=== PATIENT | female | born 1980 | race American Indian/Alaskan Native ===

== ENCOUNTER 2019-02-20 11:44 | Emergency (ER) | payer OTHER ==
[2019-02-20 12:47] VITALS: BP 92/59
--- NOTE | 2019-02-20 12:52 | Event Note ---
ED Screening Note Date of service: 02/20/19 Time: 12:48 ED Screening Note: 38 y/o female comes in for pelvic pain and back pain. N/V and weakness. m 1 a1. No care. This initial assessment/diagnostic orders/clinical plan/treatment(s) is/are subject to change based on patients health status, clinical progression and re- assessment by fellow clinical providers in the ED. Further treatment and workup at subsequent clinical providers discretion. Patient/guardian urged not to elope from the ED as their condition may be serious if not clinically assessed and managed. Initial orders include: quant ua US [id number]
[2019-02-20 13:47] LABS: Bilirubin,Urine NEG (Negative); Blood,Urine NEG (Negative); Color,Urine Yellow (Yellow); Mucus,Urine FEW /HPF; Protein,Urine <15 mg/dL mg/dL (Negative); Urobilinogen,Urine < 2.0 mg/dL (<2.0)
--- NOTE | 2019-02-20 14:42 | Emergency Department Report ---
ED HPI - General Chief complaint: Abdominal Pain Stated complaint: LOWER STOMACH/BACK PAIN/WEAKNESS Time Seen by Provider: 02/20/19 12:48 Source: patient Mode of arrival: Ambulatory Limitations: No Limitations - History of Present Illness Initial comments: Mrs. Dodson is a 38 yo female who presents with lower pelvic pain for the past week. She has right lower pelvic pain and left lower back pain. Pain is intermittent and worse with movement. Denies vaginal bleeding. No nausea. No vomiting. She is approximately 20 weeks with LMP in September. She has generalized fatigue especially after a day of work. Has not obtained care. She has her first OB appointment on Saturday. Mild lower suprapubic pain. Does not feel like contractions. No loss of fluid. She does feel the baby move. This is Mrs. Dodson seventh . She has 4 healthy children, one miscarriage and one . Complaint: other (pelvic pressure) -: Gradual, week(s) (1) Location: other (suprapubic) Radiation: suprapubic Severity: mild Quality: other (pressure) Consistency: intermittent Worsens with: movement Associated symptoms: other (left lower back pain) :: Yes Number of weeks : 20 OB History - Current : other (no care) OB History - Previous Pregnancies: miscarriage Pre- care: none - Related Data Previous Rx's Medication Instructions Recorded Last Taken Type Azithromycin [Zithromax Z-JONN] 250 mg PO DAILY #6 tablet 05/22/18 Unknown Rx Benzonatate [Tessalon Perle] 100 mg PO Q8H PRN #20 capsule 05/22/18 Unknown Rx Prednisone [predniSONE 10 mg 10 mg PO .TAPER #1 tab.ds.pk 05/22/18 Unknown Rx (6-Day Pack, 21 Tabs)] Allergies Allergy/AdvReac Type Severity Reaction Status Date / Time No Known Allergies Allergy Verified 02/20/19 11:50 ED Review of Systems ROS: Stated complaint: LOWER STOMACH/BACK PAIN/WEAKNESS Other details as noted in HPI Comment: All other systems reviewed and negative Constitutional: denies: fever, malaise Respiratory: denies: cough Cardiovascular: denies: chest pain ED Past Medical Hx - Past Medical History Previous Medical History?: No - Surgical History Past Surgical History?: No - Social History Smoking Status: Current Some Day Smoker Substance Use Type: Alcohol - Medications Home Medications: Home Medications Medication Instructions Recorded Confirmed Last Taken Type Azithromycin [Zithromax Z-JONN] 250 mg PO DAILY #6 tablet 05/22/18 Unknown Rx Benzonatate [Tessalon Perle] 100 mg PO Q8H PRN #20 capsule 05/22/18 Unknown Rx Prednisone [predniSONE 10 mg 10 mg PO .TAPER #1 tab.ds.pk 05/22/18 Unknown Rx (6-Day Pack, 21 Tabs)] ED Physical Exam - General Limitations: No Limitations General appearance: alert, in no apparent distress, other (appears well, comfortable. Eating food.) - Head Head exam: Present: atraumatic, normocephalic - Eye Eye exam: Present: normal appearance - ENT ENT exam: Present: mucous membranes moist - Neck Neck exam: Present: normal inspection, full ROM - Respiratory Respiratory exam: Present: normal lung sounds bilaterally. Absent: respiratory distress, wheezes, rales, rhonchi - Cardiovascular Cardiovascular Exam: Present: regular rate, normal rhythm, normal heart sounds. Absent: systolic murmur, diastolic murmur, rubs, gallop - GI/Abdominal GI/Abdominal exam: Present: soft, normal bowel sounds. Absent: distended, tenderness, guarding, rebound - Extremities Exam Extremities exam: Present: normal inspection - Back Exam Back exam: Present: normal inspection - Neurological Exam Neurological exam: Present: alert, oriented X3 - Psychiatric Psychiatric exam: Present: normal affect, normal mood - Skin Skin exam: Present: warm, dry, intact, normal color. Absent: rash ED Course Vital Signs 02/20/19 12:43 Temperature 98.4 F Pulse Rate 89 Respiratory 16 Rate Blood Pressure 92/59 [Right] O2 Sat by Pulse 99 Oximetry ED Medical Decision Making - Lab Data Laboratory Results - last 24 hr 02/20/19 02/20/19 02/20/19 13:01 13:01 13:13 HCG, Quant [id number] H Urine Color Yellow Urine Turbidity Slightly-cloudy Urine pH 7.0 Ur Specific Canmer 1.017 Urine Protein <15 mg/dl Urine Glucose (UA) Neg Urine Ketones Tr Urine Blood Neg Urine Nitrite Neg Urine Bilirubin Neg Urine Urobilinogen < 2.0 Ur Leukocyte Esterase Neg Urine WBC (Auto) 1.0 Urine RBC (Auto) 3.0 U Epithel Cells (Auto) 5.0 Urine Mucus Few Blood Type O POSITIVE Ord Rhogam Gestat Weeks Rh pos - Radiology Data Radiology results: report reviewed OB ultrasound: Viable single intrauterine sonographic age 19 weeks 5 days. - Medical Decision Making Mrs. Dodson presents with suprapubic pressure worse with movement. Clinical impression: Round ligament pain due to advancing . Estimated gestational age according to ultrasound 19 weeks 5 days. No indication of UTI, acute intra-abdominal inflammatory process such as appendicitis. Normal physical exam without indication of peritonitis. I do not suspect ovarian cyst or torsion. Mrs Dodson was given return precautions. She'll follow-up with her scheduled OB appointment in 3 days. Positive hcg serum quantitative, blood type O+ Critical care attestation.: If time is entered above; I have spent that time in minutes in the direct care of this critically ill patient, excluding procedure time. ED Disposition Clinical Impression: Abdominal pain affecting , Round ligament pain Disposition: DC-01 TO HOME OR SELFCARE Is pt being admited?: No Does the pt Need Aspirin: No Condition: Stable Instructions: Abdominal Pain in (ED) Additional Instructions: Today's ultrasound: baby is 19 weeks and 5 days old, SILVIANO 2019 Referrals: GRANT MIKE MD [Staff Physician] - 3-5 Days
--- NOTE | 2019-02-20 14:49 | Ultrasound Report ---
OB ULTRASOUND >= 14 WEEKS FETUS INDICATION: abd pain 19 weeks preg COMPARISON: None at this facility TECHNIQUE: Transabdominal ultrasound with color Doppler imaging. FINDINGS: A single gestation intrauterine is present with cephalic presentation. The placenta is post erior, fundal, grade 0 and free of the cervical os. heart tones measure 152 bpm. The cervix measures 3.4 cm. Amniotic fluid volume is subjectively normal. KUSHAL was not measured. The intracranial structures, spine, four-chamber heart, diaphragm, umbilical cord, cord inserti on, stomach, kidneys, and bladder show no sonographic abnormality. Biparietal diameter is 4.5 cm which equals 19 weeks 4 days. Head circumference is 16.8 cm which equals 19 weeks 3 days. Abdominal circumference is 15.0 cm which equals 20 weeks 1 day. Femur length is 3.1 cm which equals 19 weeks 5 days. Overall estimated sonographic age is 19 weeks 5 days. EDC: 07/12/2019. HC/AC ratio: 1.1 Cephalic index: 82.0 Estimated weight 319 g +/- 47 g IMPRESSION: Viable single intrauterine as outlined above. No acute abnormality is detected. Signer Name: Abhay Melchor Jr, MD Signed: 02/20/2019 2:44 PM Workstation Name: [id number]
== END 2019-02-20 16:04 | disposition home or self-care (01) ==
LOC: ED 11:44
DX: O26.892 Other specified pregnancy related conditions, second trimester (principal); R10.30 Lower abdominal pain, unspecified; O99.332 Smoking (tobacco) complicating pregnancy, second trimester; Z79.899 Other long term (current) drug therapy; Z3A.20 20 weeks gestation of pregnancy
CPT/HCPCS: 36415; 76805; 81001; 84702; 86900; 86901; 96372

== ENCOUNTER 2020-04-27 15:09 | Emergency (ER) | payer OTHER ==
[2020-04-27 17:16] VITALS: BP 120/79
--- NOTE | 2020-04-27 17:25 | Emergency Department Report ---
- General Chief Complaint: Upper Respiratory Infection Stated Complaint: WEAK Time Seen by Provider: 04/27/20 17:17 Source: patient Mode of arrival: Ambulatory Limitations: No Limitations - History of Present Illness MD Complaint: cough, rhinorrhea, nasal congestion Severity: mild Quality: dull Consistency: constant Improves With: nothing Worsens With: nothing Associated Symptoms: rhinorrhea, nasal congestion, cough, chest pain Treatments Prior to Arrival: none - Related Data Previous Rx's Medication Instructions Recorded Last Taken Type Azithromycin [Zithromax Z-JONN] 250 mg PO DAILY #6 tablet 05/22/18 Unknown Rx Benzonatate [Tessalon Perle] 100 mg PO Q8H PRN #20 capsule 05/22/18 Unknown Rx Prednisone [predniSONE 10 mg 10 mg PO .TAPER #1 tab.ds.pk 05/22/18 Unknown Rx (6-Day Pack, 21 Tabs)] Azithromycin [Zithromax] 500 mg PO QDAY #3 tablet 04/27/20 Unknown Rx guaiFENesin/CODEINE [Robitussin AC] 5 ml PO Q6H PRN #120 ml 04/27/20 Unknown Rx predniSONE [Deltasone] 20 mg PO QDAY #5 tab 04/27/20 Unknown Rx Allergies Allergy/AdvReac Type Severity Reaction Status Date / Time No Known Allergies Allergy Verified 02/20/19 11:50 ED Review of Systems ROS: Stated complaint: WEAK Other details as noted in HPI Comment: All other systems reviewed and negative ED Past Medical Hx - Past Medical History Previous Medical History?: No - Surgical History Past Surgical History?: No - Social History Smoking Status: Never Smoker Substance Use Type: None - Medications Home Medications: Home Medications Medication Instructions Recorded Confirmed Last Taken Type Azithromycin [Zithromax Z-JONN] 250 mg PO DAILY #6 tablet 05/22/18 Unknown Rx Benzonatate [Tessalon Perle] 100 mg PO Q8H PRN #20 capsule 05/22/18 Unknown Rx Prednisone [predniSONE 10 mg 10 mg PO .TAPER #1 tab.ds.pk 05/22/18 Unknown Rx (6-Day Pack, 21 Tabs)] Azithromycin [Zithromax] 500 mg PO QDAY #3 tablet 04/27/20 Unknown Rx guaiFENesin/CODEINE [Robitussin AC] 5 ml PO Q6H PRN #120 ml 04/27/20 Unknown Rx predniSONE [Deltasone] 20 mg PO QDAY #5 tab 04/27/20 Unknown Rx ED Physical Exam - General Limitations: No Limitations General appearance: alert, in no apparent distress - Head Head exam: Present: atraumatic, normocephalic - Eye Eye exam: Present: normal appearance, PERRL, EOMI Pupils: Present: normal accommodation - ENT ENT exam: Present: normal exam, mucous membranes moist - Neck Neck exam: Present: normal inspection, full ROM - Respiratory Respiratory exam: Present: normal lung sounds bilaterally. Absent: respiratory distress - Cardiovascular Cardiovascular Exam: Present: regular rate, normal rhythm. Absent: systolic murmur, diastolic murmur, rubs, gallop - GI/Abdominal GI/Abdominal exam: Present: soft, normal bowel sounds - Extremities Exam Extremities exam: Present: normal inspection, normal capillary refill - Back Exam Back exam: Present: normal inspection. Absent: CVA tenderness (R), CVA tenderness (L) - Neurological Exam Neurological exam: Present: alert, oriented X3, CN II-XII intact - Psychiatric Psychiatric exam: Present: normal affect, normal mood - Skin Skin exam: Present: warm, dry, intact, normal color. Absent: rash ED Course Vital Signs 04/27/20 17:15 Temperature 98.6 F Pulse Rate 74 Respiratory 18 Rate Blood Pressure 120/79 O2 Sat by Pulse 98 Oximetry ED Medical Decision Making - Medical Decision Making This patient presents with acute cough, most consistent with bronchitis. Differential diagnosis includes bronchitis, pneumonia, asthma, hyperreactive airway, influenza, viral syndrome. Presentation not consistent with acute bacterial pneumonia, influenza, asthma, transient airway hyperresponsiveness. Presentation not consistent with chronic causes of cough (including GERD, asthma, postnasal discharge, medication side effect, CHF, lung cancer or mass). Plan: supportive care, reassess Critical care attestation.: If time is entered above; I have spent that time in minutes in the direct care of this critically ill patient, excluding procedure time. ED Disposition Clinical Impression: Cough, Bronchitis Disposition: DC-01 TO HOME OR SELFCARE Is pt being admited?: No Does the pt Need Aspirin: No Condition: Stable Instructions: Chronic Bronchitis (ED), Upper Respiratory Infection, Adult, [id number], Cool Mist Vaporizer Prescriptions: predniSONE [Deltasone] 20 mg PO QDAY #5 tab guaiFENesin/CODEINE [Robitussin AC] 5 ml PO Q6H PRN #120 ml PRN Reason: Cough Azithromycin [Zithromax] 500 mg PO QDAY #3 tablet Referrals: [facility] [Provider Group] - 3-5 Days
== END 2020-04-27 19:00 | disposition home or self-care (01) ==
LOC: ED 15:09
DX: J40 Bronchitis, not specified as acute or chronic (principal); R05 Cough; Z79.2 Long term (current) use of antibiotics; Z79.899 Other long term (current) drug therapy
CPT/HCPCS: 99281